=== PATIENT | male | born 1965 | race Caucasian/White ===

== ENCOUNTER 2020-03-03 14:31 | Inpatient (IN) | payer OTHER, SELFPAY ==
[~2020-03-03] VITALS: Ht 162.6 cm; Wt 72.6 kg
[2020-03-03 14:49] VITALS: BP 132/95
[2020-03-03] MEDS ORDERED: ACETAMINOPHEN EXTRA STRENGTH 500 MG TAB PO ONE (15:05)
[2020-03-03] MEDS ORDERED: NACL 0.9% 1,000 ML IV ONE ×2 (15:20→19:50)
[2020-03-03 15:43] LABS: APPEARANCE,URINE CLEAR (CLEAR); BILIRUBIN,URINE 1+ (NEGATIVE); BLOOD, URINE NEGATIVE (NEGATIVE); LEUKOCYTE ESTERASE ,URINE NEGATIVE (NEGATIVE); NITRITE, URINE NEGATIVE (NEGATIVE); UGLUCOSE NEGATIVE (NEGATIVE)
[2020-03-03 15:44] LABS: BASOPHILS % (AUTO) 0.6 % (0.0-2.0); LYMPHOCYTES # (AUTO) 0.8 K/uL (2.0-11.5); MEAN CORPUSCULAR HEMOGLOBIN 35 pg (27-31); MEAN CORPUSCULAR HGB CONC 34 g/dL (33-37); MEAN CORPUSCULAR VOLUME 101.6 fL (80-94); MONOCYTES # (AUTO) 0.3 K/uL (0.8-1.0); MONOCYTES % (AUTO) 7.6 % (1.7-9.3); NEUTROPHILS # (AUTO) 2.3 K/uL (1.8-7.7); NEUTROPHILS % (AUTO) 67.8 % (42.2-75.2); PLATELET COUNT (AUTO) 124 K/uL (140-450); RED BLOOD CELL COUNT(AUTO) 4.33 MIL/uL (4.20-6.10); RED CELL DISTRIBUTION WIDTH 14.9 % (11.6-13.7); WHITE BLOOD COUNT (AUTO) 3.3 K/uL (4.8-10.8)
[2020-03-03 15:51] LABS: COLOR,URINE AMBER (YELLOW)
[2020-03-03 16:10] LABS: ALBUMIN 3.4 g/dL (3.4-5.0); ANION GAP 16.6 (8-16); CARBON DIOXIDE 23.9 mmol/L (21-32); POTASSIUM 3.5 mmol/L (3.5-5.1); TOTAL BILIRUBIN 0.9 mg/dL (0.0-1.0)
[2020-03-03 16:54] LABS: PROTHROMBIN TIME 9.9 secs (10.8-13.4)
[2020-03-03] MEDS ORDERED: DOCUSATE SODIUM 100 MG GELCAP PO PRN (17:30)
[2020-03-03] MEDS ORDERED: ONDANSETRON 4 MG/2 ML VIAL IM/IVP PRN (17:30)
[2020-03-03] MEDS ORDERED: ZOLPIDEM 5 MG TAB PO PRN (17:30)
[2020-03-03] MEDS ORDERED: LORazepam 2 MG/ML VIAL IM/IVP PRN (17:30)
[2020-03-03] MEDS ORDERED: MORPHINE SULFATE 2 MG/ML SYR IVP PRN (17:30)
[2020-03-03] MEDS ORDERED: ACETAMINOPHEN 325 MG TAB PO PRN (17:30)
[2020-03-03] MEDS ORDERED: HYDROcodone/APAP 5/325 MG 1 TAB TAB PO PRN (17:30)
[2020-03-03] MEDS ORDERED: cefTRIAXone 1,000 MG VIAL ONE (18:00)
[2020-03-03] MEDS ORDERED: AZITHROMYCIN 250 MG TAB PO ONE (18:00)
[2020-03-03 18:20] LABS: CHOL/HDL RATIO 4.2 (1-4.5); FREE T4 (FREE THYROXINE) 0.63 ng/dL (0.76-1.46); MAGNESIUM 1.8 mg/dL (1.8-2.4); PHOSPHORUS 2.2 mg/dL (2.5-4.9); THYROID STIMULATING HORMONE 15.01 uIU/mL (0.34-3.74)
[2020-03-03 18:57] LABS: FIBRINOGEN 438 mg/dL (200-400)
[2020-03-03 19:02] LABS: LACTATE DEHYDROGENASE 406 U/L (85-227)
[2020-03-03 19:21] LABS: RSV NEGATIVE (NEGATIVE)
[2020-03-03 19:34] LABS: BARBITURATE, URINE NEGATIVE ng/ml (NEG <=200); BENZODIAZEPINE, URINE NEGATIVE ng/mL (NEG <=200); CANNABINOID, URINE NEGATIVE ng/mL (NEG <=50); COCAINE, URINE NEGATIVE ng/mL (NEG <=300); OPIATE, URINE NEGATIVE ng/mL (NEG <=2000); PHENCYCLIDINE SCREEN,URINE NEGATIVE ng/mL (NEG <=25)
[2020-03-03 19:43] LABS: D-DIMER 337 ng/ml (0-400)
[2020-03-03] MEDS ORDERED: ALBUTEROL HFA MDI 90 MCG/ACTUATION 8 GM INH PRN (21:30)
[2020-03-03] MEDS: ZINC SULF 220 MG CAP PO SCH (23:00)
[2020-03-03] MEDS: ENOXAPARIN 80 MG/0.8 ML SYR SUBQ SCH (23:30)
[2020-03-03 23:45] VITALS: BP 131/82
[2020-03-03] MEDS: SODIUM PHOS / POTASSIUM PHOS 1 PKT PDR PO SCH (23:52)
[2020-03-03] MEDS: NACL 0.9% 1,000 ML IV SCH (23:52)
[2020-03-04] MEDS: ASCORBIC ACID 500 MG TAB PO SCH ×2 (03:18→08:20)
[2020-03-04] MEDS: NACL 0.9% 1,000 ML IV SCH ×3 (03:28→20:48)
[2020-03-04 03:30] VITALS: BP 112/75
[2020-03-04 08:00] VITALS: BP 122/81
[2020-03-04] MEDS: SODIUM PHOS / POTASSIUM PHOS 1 PKT PDR PO SCH ×2 (08:20→12:01)
[2020-03-04] MEDS: ZINC SULF 220 MG CAP PO SCH (08:20)
[2020-03-04] MEDS: AZITHROMYCIN 250 MG TAB PO SCH (08:21)
[2020-03-04 08:37] LABS: BASOPHILS % (AUTO) 0.3 % (0.0-2.0); EOSINOPHILS % (AUTO) 0.1 % (0.0-4.0); HEMATOCRIT 38.2 % (36-52); HEMOGLOBIN 13.1 g/dL (12.0-18.0); LYMPHOCYTES # (AUTO) 1.1 K/uL (2.0-11.5); LYMPHOCYTES % (AUTO) 31.6 % (20.5-51.1); MEAN CORPUSCULAR HEMOGLOBIN 35 pg (27-31); MEAN CORPUSCULAR HGB CONC 34 g/dL (33-37); MEAN CORPUSCULAR VOLUME 101.7 fL (80-94); MONOCYTES # (AUTO) 0.2 K/uL (0.8-1.0); MONOCYTES % (AUTO) 7.1 % (1.7-9.3); NEUTROPHILS # (AUTO) 2.1 K/uL (1.8-7.7); NEUTROPHILS % (AUTO) 60.9 % (42.2-75.2); PLATELET COUNT (AUTO) 122 K/uL (140-450); RED BLOOD CELL COUNT(AUTO) 3.75 MIL/uL (4.20-6.10); RED CELL DISTRIBUTION WIDTH 14.2 % (11.6-13.7); WHITE BLOOD COUNT (AUTO) 3.4 K/uL (4.8-10.8)
[2020-03-04] MEDS: ENOXAPARIN 80 MG/0.8 ML SYR SUBQ SCH ×2 (08:40→20:47)
[2020-03-04 11:51] LABS: ANION GAP 15.1 (8-16); CARBON DIOXIDE 23.4 mmol/L (21-32); CREATININE 0.6 mg/dL (0.6-1.3); POTASSIUM 3.5 mmol/L (3.5-5.1)
[2020-03-04 12:00] VITALS: BP 115/78
[2020-03-04 12:03] LABS: MAGNESIUM 1.8 mg/dL (1.8-2.4); PHOSPHORUS 2.6 mg/dL (2.5-4.9)
[2020-03-04] MEDS: LEVOTHYROXINE 0.112 MG TAB PO SCH (14:51)
[2020-03-04 16:00] VITALS: BP 118/76
[2020-03-04 20:00] VITALS: BP 122/77
[2020-03-05] VITALS: BP 109/73
[2020-03-05 04:00] VITALS: BP 95/60
[2020-03-05] MEDS: LEVOTHYROXINE 0.112 MG TAB PO SCH (06:32)
[2020-03-05 08:00] VITALS: BP 115/81
[2020-03-05 08:20] LABS: ALBUMIN 2.8 g/dL (3.4-5.0); ANION GAP 13.8 (8-16); CARBON DIOXIDE 26.3 mmol/L (21-32); CREATININE 0.7 mg/dL (0.6-1.3); MAGNESIUM 1.9 mg/dL (1.8-2.4); PHOSPHORUS 2.9 mg/dL (2.5-4.9); POTASSIUM 3.1 mmol/L (3.5-5.1); TOTAL BILIRUBIN 0.7 mg/dL (0.0-1.0)
[2020-03-05] MEDS: ASCORBIC ACID 500 MG TAB PO SCH (08:25)
[2020-03-05] MEDS: AZITHROMYCIN 250 MG TAB PO SCH (08:26)
[2020-03-05] MEDS: ZINC SULF 220 MG CAP PO SCH (08:26)
[2020-03-05 09:14] LABS: BASOPHILS % (AUTO) 0.3 % (0.0-2.0); EOSINOPHILS % (AUTO) 0.3 % (0.0-4.0); HEMATOCRIT 38.3 % (36-52); HEMOGLOBIN 13.3 g/dL (12.0-18.0); LYMPHOCYTES # (AUTO) 1.2 K/uL (2.0-11.5); LYMPHOCYTES % (AUTO) 35.9 % (20.5-51.1); MEAN CORPUSCULAR HEMOGLOBIN 35 pg (27-31); MEAN CORPUSCULAR HGB CONC 35 g/dL (33-37); MEAN CORPUSCULAR VOLUME 100.6 fL (80-94); MONOCYTES # (AUTO) 0.3 K/uL (0.8-1.0); MONOCYTES % (AUTO) 7.6 % (1.7-9.3); NEUTROPHILS # (AUTO) 1.9 K/uL (1.8-7.7); NEUTROPHILS % (AUTO) 55.9 % (42.2-75.2); PLATELET COUNT (AUTO) 144 K/uL (140-450); RED BLOOD CELL COUNT(AUTO) 3.81 MIL/uL (4.20-6.10); RED CELL DISTRIBUTION WIDTH 14.3 % (11.6-13.7); WHITE BLOOD COUNT (AUTO) 3.4 K/uL (4.8-10.8)
[2020-03-05] MEDS: NACL 0.9% 1,000 ML IV SCH (09:28)
[2020-03-05] MEDS: ENOXAPARIN 80 MG/0.8 ML SYR SUBQ SCH ×2 (11:05→21:45)
[2020-03-05] MEDS ORDERED: POTASSIUM CHLORIDE 10 MEQ TABER PO SCH (11:21)
[2020-03-05 12:00] VITALS: BP 108/88
[2020-03-05 16:00] VITALS: BP 111/75
[2020-03-05 20:00] VITALS: BP 111/78
[2020-03-06] VITALS: BP 109/71
[2020-03-06 04:30] VITALS: BP 102/68
[2020-03-06] MEDS: LEVOTHYROXINE 0.112 MG TAB PO SCH (06:03)
[2020-03-06 06:56] LABS: BASOPHILS % (AUTO) 0.6 % (0.0-2.0); EOSINOPHILS % (AUTO) 1.4 % (0.0-4.0); HEMATOCRIT 37.4 % (36-52); HEMOGLOBIN 12.9 g/dL (12.0-18.0); LYMPHOCYTES # (AUTO) 1.3 K/uL (2.0-11.5); LYMPHOCYTES % (AUTO) 42.6 % (20.5-51.1); MEAN CORPUSCULAR HEMOGLOBIN 35 pg (27-31); MEAN CORPUSCULAR HGB CONC 35 g/dL (33-37); MEAN CORPUSCULAR VOLUME 100.2 fL (80-94); MONOCYTES # (AUTO) 0.3 K/uL (0.8-1.0); MONOCYTES % (AUTO) 9.1 % (1.7-9.3); NEUTROPHILS # (AUTO) 1.5 K/uL (1.8-7.7); NEUTROPHILS % (AUTO) 46.3 % (42.2-75.2); PLATELET COUNT (AUTO) 181 K/uL (140-450); RED BLOOD CELL COUNT(AUTO) 3.73 MIL/uL (4.20-6.10); RED CELL DISTRIBUTION WIDTH 14.5 % (11.6-13.7); WHITE BLOOD COUNT (AUTO) 3.2 K/uL (4.8-10.8)
[2020-03-06 08:00] VITALS: BP 110/71
[2020-03-06 08:08] LABS: ALBUMIN 2.7 g/dL (3.4-5.0); ANION GAP 11.2 (8-16); CARBON DIOXIDE 26.3 mmol/L (21-32); CREATININE 0.7 mg/dL (0.6-1.3); MAGNESIUM 2.1 mg/dL (1.8-2.4); PHOSPHORUS 2.4 mg/dL (2.5-4.9); POTASSIUM 3.5 mmol/L (3.5-5.1); TOTAL BILIRUBIN 0.9 mg/dL (0.0-1.0)
[2020-03-06] MEDS: AZITHROMYCIN 250 MG TAB PO SCH (08:45)
[2020-03-06] MEDS: ASCORBIC ACID 500 MG TAB PO SCH (08:45)
[2020-03-06] MEDS: ZINC SULF 220 MG CAP PO SCH (08:45)
[2020-03-06] MEDS: ENOXAPARIN 80 MG/0.8 ML SYR SUBQ SCH (08:53)
[2020-03-06] MEDS ORDERED: LEVO0.118 PO (09:05)
[2020-03-06] MEDS ORDERED: ASPI-1822 PO (09:07)
[2020-03-06] MEDS ORDERED: ZINC220C28 PO (09:09)
[2020-03-06] MEDS ORDERED: ASCO-519 PO (09:09)
[2020-03-06] MEDS ORDERED: AZIT250T3 PO (09:19)
[2020-03-06 09:43] VITALS: BP 111/71
== END 2020-03-06 11:05 | disposition home or self-care (01) | DRG 137 ==
LOC: MED 14:31 → EEVIPCON 14:31 → MTU 17:28
PROVIDERS: ADMIT General Practice; ATTEND General Practice
DX: U07.1 COVID-19 (principal); J96.01 Acute respiratory failure with hypoxia; E43 Unspecified severe protein-calorie malnutrition; E86.0 Dehydration; J12.89 Other viral pneumonia; E66.01 Morbid (severe) obesity due to excess calories; R82.4 Acetonuria; E83.39 Other disorders of phosphorus metabolism; Z68.27 Body mass index [BMI] 27.0-27.9, adult; R73.9 Hyperglycemia, unspecified; F17.211 Nicotine dependence, cigarettes, in remission; E03.9 Hypothyroidism, unspecified; E87.6 Hypokalemia
CPT/HCPCS: 36415; 36600; 71045; 80048; 80053; 80305; 81003; 82150; 82550; 82728; 82803; 83036; 83605; 83615; 83690; 83735; 83880; 84100; 84439; 84443; 84484; 85025; 85379; 85384; 85610; 85651; 86140; 87040; 87081; 87086; 87420; 87804; 93005; 96361; 96365; 99285; J0696; J1650; J7030; J7060